=== PATIENT | female | born 1985 | race African-American/Black ===

== ENCOUNTER 2019-06-06 09:29 | Emergency (ER) | payer MEDICAID ==
[~2019-06-06] VITALS: Ht 170.2 cm; Wt 97.5 kg
[2019-06-06 09:43] VITALS: BP 117/76
--- NOTE | 2019-06-06 09:44 | NUR ---
ED Nurse Note: Patient walked in to ER from home due to severe ANAMARIA back pain for a week. pt aao x4 and ambulatory. pt denied trauma or buring sensation to urinate. calm and cooperative. no cardiac or pulmonary distress noted at this time.
--- NOTE | 2019-06-06 09:50 | NUR ---
ED Nurse Note: Urine sent to lab.
[2019-06-06 10:02] LABS: APPEARANCE,URINE CLEAR; BILIRUBIN, URINE NEGATIVE (NEGATIVE); GLUCOSE, URINE (UA) NEGATIVE (NEGATIVE); KETONES,URINE NEGATIVE (NEGATIVE); LEUKOCYTE ESTERASE ,URINE NEGATIVE (NEGATIVE); NITRITE,URINE NEGATIVE (NEGATIVE); PH,URINE 5 (4.5-8.0); PROTEIN,URINE 1+ (NEGATIVE); UROBILINOGEN,URINE NORMAL MG/DL (0.0-1.0)
[2019-06-06 10:03] LABS: COLOR,URINE YELLOW
--- NOTE | 2019-06-06 10:07 | Emergency Room Report ---
History of Present Illness General Chief Complaint: Back Pain-No Injury Source: Patient Present Illness HPI Patient is a 33-year-old female presents after increased left-sided flank pain worse since last night. Patient reports having increased discomfort to the left flank. She states this does not feel like prior episodes of pain she has had at the spot. She denies any hematuria. She denies being . Gradual onset of pain worse with movement. She denies any fever. Denies any vomiting. She reports having one episode of diarrhea. Denies any bloody stools. Allergies: Coded Allergies: No Known Allergies (Unverified , 06/06/19) Patient History Past Medical History: other - Eczema Last Menstrual Period: 05/31/19 Reviewed Nursing Documentation: PMH: Agreed; PSxH: Agreed Nursing Documentation-PMH Past Medical History: No Stated History Review of Systems All Other Systems: negative except mentioned in HPI Physical Exam Vital Signs Date Time Temp Pulse Resp B/P (MAP) Pulse Ox O2 Delivery O2 Flow Rate FiO2 06/06/19 09:36 98.8 113 19 117/76 (90) 98 Room Air Sp02 EP Interpretation: reviewed, normal General Appearance: normal inspection, well appearing, no apparent distress, alert, GCS 15 Head: atraumatic ENT: normal ENT inspection, hearing grossly normal, normal voice Neck: normal inspection, full range of motion, supple, no bony tend Respiratory: normal inspection, lungs clear, normal breath sounds, no respiratory distress, no retraction, no wheezing Cardiovascular #1: regular rate, rhythm, no edema Gastrointestinal: normal inspection, normal bowel sounds, non tender, soft, no guarding, no hernia Genitourinary: CVA tenderness (L) Musculoskeletal: normal inspection, back normal, decreased range of motion, normal range of motion Neurologic: alert, motor strength/tone normal, filter press pumper III-XII nml as tested, EOM palsy, responsive, speech normal, normal inspection Psychiatric: normal inspection, judgement/insight normal, mood/affect normal Skin: other - Eczematous changes to the skin Medical Decision Making Diagnostic Impression: Primary Impression: Left flank pain Additional Impression: Fibroids ER Course Patient presented for left flank pain. Differential diagnosis include was not limited to renal stone, pyelonephritis, gastritis among others. Because of complexity of patient's case ultrasound imaging was ordered. Patient was noted to have some small amount of pelvic fluid consistent with possible physiologic cyst rupture. She does not appear to be in any acute distress. Patient be given prescription for ibuprofen. She was advised to follow-up with her [employer] for recheck in the next 1 to 2 days. She is to return if worse. She was given prescription for Keflex due to some evidence of mild urinary infection.Patient advised to return if worse. Last Vital Signs Date Time Temp Pulse Resp B/P (MAP) Pulse Ox O2 Delivery O2 Flow Rate FiO2 06/06/19 09:43 98.8 73 19 117/76 98 Room Air Status: improved Disposition: HOME, SELF-CARE Condition: Stable Scripts Cephalexin* (KEFLEX*) 500 Mg Capsule 500 MG ORAL EVERY 6 HOURS, #20 CAP Prov: Isaac Elias MD 06/06/19 Ibuprofen* (MOTRIN*) 600 Mg Tablet 600 MG ORAL Q8H PRN for For Pain, #30 TAB 0 Refills Prov: Isaac Elias MD 06/06/19 Isaac Elias MD Jun 06, 2019 10:07
--- NOTE | 2019-06-06 10:11 | NUR ---
ED Nurse Note: US called for order.
[2019-06-06] MEDS ORDERED: IBUPROFEN600 MG ORAL (10:51)
[2019-06-06] MEDS ORDERED: CEPHALEXIN500 MG ORAL (10:54)
--- NOTE | 2019-06-06 11:05 | NUR ---
ED Nurse Note: MEDS WERE ELECTRONICALLY SENT.
[2019-06-06 11:09] VITALS: BP 109/76
--- NOTE | 2019-06-06 11:11 | NUR ---
ER DISCHARGE NOTE: Patient is cleared to be discharged per ERMD, pt is aox4, on room air, with stable vital signs. pt was given dc and prescription instructions, pt was able to verbalize understanding, pt id band removed . pt is able to ambulate with steady gait. pt took all belongings.
--- NOTE | 2019-06-06 11:24 | Diagnostic Imaging Report ---
Indication:Elevated Bun and Creatinine. Technique: Grayscale and duplex Doppler imaging of the kidneys performed. Comparison: None Findings: The size, contour, and echogenicity of both kidneys are within normal limits. There is no hydronephrosis.. The right kidney measures 11.5 cm. in length. The left kidney measures 11.4 cm. in length. The IVC is patent. Urinary bladder is unremarkable. There is a small amount of pelvic free fluid which may be physiologic. Approximately 4 cm uterine fibroid incidentally noted on the left side of the uterus. IMPRESSION: Negative ultrasound the kidneys. Incidental uterine fibroid. Mild pelvic free fluid
== END 2019-06-06 11:10 | disposition home or self-care (01) ==
LOC: EMR 10:10
DX: R10.9 Unspecified abdominal pain (principal); D25.9 Leiomyoma of uterus, unspecified
CPT/HCPCS: 76770; 81003; 81025; Z7502; 99284